=== PATIENT | female | born 1955 | race Caucasian/White ===

== ENCOUNTER → 2020-09-15 08:55 | Outpatient (BNVA) | payer SELFPAY | PROVIDERS: PCP Nurse Practitioner; Visit Provider Internal Medicine Rheumatology | DX: M06.9 Rheumatoid arthritis, unspecified (principal); L94.0 Localized scleroderma [morphea]; M15.4 Erosive (osteo)arthritis; Z79.899 Other long term (current) drug therapy; Z79.52 Long term (current) use of systemic steroids | CPT/HCPCS: 99204 ==

== ENCOUNTER 2020-09-30 12:36 | Outpatient (CLI) | payer SELFPAY ==
--- NOTE | 2020-09-30 14:00 | XR_ITS ---
WS: [id number] RIGHT FOOT: 3 VIEW(S) TECHNIQUE: AP, oblique and lateral. 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 No acute fracture or dislocation. Curvilinear calcification or remote fracture at the second medial m etatarsophalangeal joint space. Normal tarsal/metatarsal alignment. No soft tissue abnormality or bone destruction. XR/XR foot RT min 3V* [id number] IMPRESSION: No significant erosions or acute injury.
--- NOTE | 2020-09-30 14:00 | XR_ITS ---
WS: [id number] RIGHT HAND: 3 VIEW(S) TECHNIQUE: PA, oblique and lateral. 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 No acute fracture or dislocation. Mild narrowing of interphalangeal joint spaces. No metacarpal head erosions. No subluxation. Mild sof t tissue edema around the interphalangeal joint spaces. XR/XR hand RT min 3V* [id number] IMPRESSION: Mild osteoarthritis.
--- NOTE | 2020-09-30 14:00 | XR_ITS ---
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 Lungs: Clear with no abnormality. No pleural effusion or pneumothorax. Cardiac size: Normal. Mediastinum/Aorta: Normal mediastinum. Bones: Normal. XR/XR chest 2V* [id number] IMPRESSION: Normal chest.
--- NOTE | 2020-09-30 14:00 | XR_ITS ---
WS: [id number] LEFT FOOT: 3 VIEW(S) TECHNIQUE: AP, oblique and lateral. HISTORY: Z79.899 - Other [facility] (current) drug therapy COMPARISON: None available. No acute fracture or dislocation. Normal tarsal/metatarsal alignment. No soft tissue abnormality or bone destruction. XR/XR foot LT min 3V* [id number] IMPRESSION: Normal LEFT foot.
--- NOTE | 2020-09-30 14:00 | XR_ITS ---
WS: [id number] LEFT HAND: 3 VIEW(S) TECHNIQUE: PA, oblique and lateral. 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 No acute fracture or dislocation. Mild interphalangeal narrowing most significant involving the third finger with mild soft tissue thic kening at the joint levels. No erosions. XR/XR hand LT min 3V* [id number] IMPRESSION: Changes of mild osteoarthritis. No erosions.
== END 2020-09-30 12:37 | disposition home or self-care (01) ==
PROVIDERS: PCP Nurse Practitioner; Visit Provider Internal Medicine Rheumatology
DX: Z79.899 Other long term (current) drug therapy (principal); M19.90 Unspecified osteoarthritis, unspecified site
CPT/HCPCS: 71046; 73130; 73630

== ENCOUNTER → 2021-01-23 11:10 | Outpatient (BNVA) | payer SELFPAY | PROVIDERS: PCP Nurse Practitioner; Referring Provider Internal Medicine Rheumatology; Visit Provider Internal Medicine Rheumatology | DX: M06.9 Rheumatoid arthritis, unspecified (principal); Z11.59 Encounter for screening for other viral diseases; Z79.899 Other long term (current) drug therapy | CPT/HCPCS: 82306; 85025; 86200; 86235; 86704; 86803; 87340 ==

== ENCOUNTER → 2021-01-25 08:53 | Outpatient (BNVA) | payer SELFPAY | PROVIDERS: PCP Nurse Practitioner; Visit Provider Internal Medicine Rheumatology | DX: M05.9 Rheumatoid arthritis with rheumatoid factor, unspecified (principal); M15.4 Erosive (osteo)arthritis; L94.0 Localized scleroderma [morphea]; Z79.899 Other long term (current) drug therapy; Z79.52 Long term (current) use of systemic steroids; Z71.89 Other specified counseling | CPT/HCPCS: 99214 ==

== ENCOUNTER 2021-01-25 11:28 | Outpatient (CLI) | payer SELFPAY ==
--- NOTE | 2021-01-25 11:37 | XR_ITS ---
WS: [id number] XR shoulder RT min 2V* [id number] REASON FOR EXAM: SHOULDER PAIN RIGHT FINDINGS: Compared to a chest x-ray of 09/30/2020 which included the right shoulder, the right acromioclavicular joint has become significantly widened and the acromial and clavicular margins appear eroded. This finding is associated with The sclerotic and cystic change at the insertion of the rotator cuff tendon on the humeral head. There is mild narrowing of the glenohumeral joint. XR/XR shoulder RT min 2V* [id number] IMPRESSION: Possible explanation for the interval change in the acromial clavicular joint i s at the Foley affect of synovial fluid entering the AC joint space through a tear in the rotator cuff. The humeral head does demonstrate changes of rotator cuff tendinopathy/arthropathy. Possibly other intra-articular process primary to the acromioclavicular joint. MRI of the right shoulder would likely be definitive as clinically warranted.
--- NOTE | 2021-01-25 11:38 | XR_ITS ---
WS: [id number] XR knee LT 1-2V [id number] REASON FOR EXAM: ARTHRALGIA FINDINGS: Mild/moderate narrowing of the medial knee joint space with subchondral sclerosis and small marginal osteophytes. Mild narrowing of the medial knee joint space Patellofemoral joint space appears intact. No significant patellar abnormality. XR/XR knee LT 1-2V 03055 IMPRESSION: Osteoarthritis involving the medial knee joint space as above.
--- NOTE | 2021-01-25 12:39 | XR_ITS ---
WS: [id number] XR knee RT 1-2V 99011 REASON FOR EXAM: RIGHT KNEE PAIN FINDINGS: Significant narrowing of the medial knee joint space with subchondral sclerosis and marginal osteophy puala. Mild narrowing of the lateral knee joint space with marginal osteophytes. Narrowing of the patellofemoral joint space with moderate patellar osteophytes. XR/XR knee RT 1-2V 16930 IMPRESSION: Osteoarthritis of the right knee as above.
== END 2021-01-25 11:29 | disposition home or self-care (01) ==
PROVIDERS: PCP Nurse Practitioner; Visit Provider Nurse Practitioner
DX: M25.511 Pain in right shoulder (principal); M25.561 Pain in right knee; M25.562 Pain in left knee; M17.0 Bilateral primary osteoarthritis of knee
CPT/HCPCS: 73030; 73560

== ENCOUNTER → 2021-05-30 10:25 | Outpatient (BNVA) | payer MEDICAID, SELFPAY | PROVIDERS: PCP Nurse Practitioner; Visit Provider Internal Medicine Rheumatology | DX: M05.79 Rheumatoid arthritis with rheumatoid factor of multiple sites without organ or systems involvement (principal); L94.0 Localized scleroderma [morphea]; M15.4 Erosive (osteo)arthritis; Z79.899 Other long term (current) drug therapy; Z79.52 Long term (current) use of systemic steroids; Z71.89 Other specified counseling | CPT/HCPCS: 99214 ==

== ENCOUNTER → 2021-08-09 11:52 | Outpatient (BNVA) | payer MEDICAID, SELFPAY | PROVIDERS: PCP Nurse Practitioner; Visit Provider Internal Medicine Rheumatology | DX: M06.9 Rheumatoid arthritis, unspecified (principal); Z79.899 Other long term (current) drug therapy | CPT/HCPCS: 80076; 82565; 85025; 86140 ==

== ENCOUNTER → 2021-10-30 14:45 | Outpatient (BNVA) | payer MEDICAID, SELFPAY | PROVIDERS: PCP Nurse Practitioner; Visit Provider Internal Medicine Rheumatology | DX: M05.79 Rheumatoid arthritis with rheumatoid factor of multiple sites without organ or systems involvement (principal); M15.4 Erosive (osteo)arthritis; Z79.899 Other long term (current) drug therapy; Z79.52 Long term (current) use of systemic steroids; Z71.89 Other specified counseling | CPT/HCPCS: 99214 ==

== ENCOUNTER → 2022-03-06 13:02 | Outpatient (BNVA) | payer MEDICARE, MEDICAID, SELFPAY | PROVIDERS: PCP Nurse Practitioner; Visit Provider Internal Medicine Rheumatology | DX: M05.79 Rheumatoid arthritis with rheumatoid factor of multiple sites without organ or systems involvement (principal); Z79.899 Other long term (current) drug therapy | CPT/HCPCS: 80076; 82565; 85025; 86140 ==

== ENCOUNTER 2022-04-18 06:00 | Outpatient (RCR) | payer MEDICARE, MEDICAID, SELFPAY | END 2022-05-15 23:59 | disposition home or self-care (01) | LOC: MOT 06:00 | PROVIDERS: PCP Nurse Practitioner; Visit Provider Internal Medicine Rheumatology | DX: M05.242 Rheumatoid vasculitis with rheumatoid arthritis of left hand (principal) | CPT/HCPCS: L3923 ==

== ENCOUNTER → 2023-03-12 11:20 | Outpatient (BNVA) | payer MEDICARE, MEDICAID, SELFPAY | PROVIDERS: PCP Nurse Practitioner; Referring Provider Internal Medicine Rheumatology; Visit Provider Internal Medicine Rheumatology | DX: Z11.1 Encounter for screening for respiratory tuberculosis (principal) | CPT/HCPCS: 86480 ==

== ENCOUNTER → 2023-09-18 11:03 | Outpatient (BNVA) | payer MEDICARE, MEDICAID, SELFPAY | PROVIDERS: PCP Nurse Practitioner; Visit Provider Internal Medicine Rheumatology | DX: Z79.899 Other long term (current) drug therapy (principal); M05.79 Rheumatoid arthritis with rheumatoid factor of multiple sites without organ or systems involvement; Z71.89 Other specified counseling; M15.4 Erosive (osteo)arthritis; L94.0 Localized scleroderma [morphea] | CPT/HCPCS: 99214 ==

== ENCOUNTER → 2023-10-15 09:59 | Outpatient (BNVA) | payer MEDICARE, MEDICAID, SELFPAY | PROVIDERS: PCP Nurse Practitioner; Visit Provider Student in an Organized Health Care Education/Training Program | DX: M25.561 Pain in right knee (principal); M25.562 Pain in left knee; M17.0 Bilateral primary osteoarthritis of knee | CPT/HCPCS: 20610; 73560; 73565; 99204; J3301 ==

== ENCOUNTER → 2024-02-25 09:31 | Outpatient (BNVA) | payer MEDICARE, MEDICAID, SELFPAY | PROVIDERS: PCP Nurse Practitioner; Visit Provider Student in an Organized Health Care Education/Training Program | DX: M17.0 Bilateral primary osteoarthritis of knee (principal) | CPT/HCPCS: 20610; 99213; J3301 ==

== ENCOUNTER → 2024-07-29 11:03 | Outpatient (BNVA) | payer MEDICARE, MEDICAID, SELFPAY | PROVIDERS: PCP Nurse Practitioner; Visit Provider Student in an Organized Health Care Education/Training Program | DX: M17.0 Bilateral primary osteoarthritis of knee (principal) | CPT/HCPCS: 20610; 99213; J3301; J9999 ==

== ENCOUNTER → 2024-11-03 10:10 | Outpatient (BNVA) | payer MEDICARE, MEDICAID, SELFPAY | PROVIDERS: PCP Nurse Practitioner; Visit Provider Student in an Organized Health Care Education/Training Program | DX: M25.562 Pain in left knee (principal); M25.561 Pain in right knee; M17.0 Bilateral primary osteoarthritis of knee | CPT/HCPCS: 20610; 99213 ==

== ENCOUNTER → 2025-02-17 09:38 | Outpatient (BNVA) | payer MEDICARE, MEDICAID, SELFPAY | PROVIDERS: PCP Nurse Practitioner; Visit Provider Student in an Organized Health Care Education/Training Program | DX: M17.0 Bilateral primary osteoarthritis of knee (principal) | CPT/HCPCS: 20610; 99213; J3301; J9999 ==